=== PATIENT | female | born 1965 | race Caucasian/White ===

== ENCOUNTER → 2019-02-11 13:12 | Outpatient (CLI) | payer OTHER, SELFPAY ==
--- NOTE | 2019-02-11 | DI.RAD.S_ITS ---
PROCEDURE: XR CERVICAL SPINE 4V OR 5V INDICATIONS: NECK PAIN TECHNIQUE: 5 views of the cervical spine acquired. COMPARISON: None. FINDINGS: Bones: There is straightening and mild reversal of normal cervical lordosis centered at C4-5 level. No fractures or dislocations to the C7-T1 level. Mild degenerative endplate changes are noted at C4-5 through C6-7 levels. Oblique images demonstrate the right-sided neural foramina narrowing at C6-7 level. Soft tissues: No prevertebral soft tissue swelling. IMPRESSION: Degenerative disc disease at C4-5 through C6-7 levels with mild right-sided neuroforaminal narrowing at C6-7 level. No compression fracture. Dictated by: Tc Wallace M.D. on 02/11/2019 at 14:10 Approved by: Tc Wallace M.D. on 02/11/2019 at 14:23
== END ==
PROVIDERS: PCP Internal Medicine; Visit Provider Internal Medicine
DX: M50.321 Other cervical disc degeneration at C4-C5 level (principal); M48.02 Spinal stenosis, cervical region
CPT/HCPCS: 72050

== ENCOUNTER → 2023-07-15 17:07 | Outpatient (CLI) | payer OTHER, SELFPAY ==
--- NOTE | 2023-07-15 17:10 | DI.RAD.S_ITS ---
PROCEDURE: XR LUMBAR SPINE 2-3V INDICATIONS: LOW BACK PAIN TECHNIQUE: 3 views of the lumbar spine were acquired. COMPARISON: [facility], , L-SPINE 2-3 VIEWS, 02/12/2018, 13:12. FINDINGS: Bones: 5 jem-leg-cuoatcp vertebrae are present. 5 mm spondylolisthesis L4-L5. Mild multilevel disc height loss with endplate sclerosis and spurring, most notably at the L4-L5 level. Mild L4-L5 and L5-S1 facet joint arthropathy. No vertebral body compression fractures. No suspicious bony lesions. Soft tissues: Overlying bowel gas pattern is normal. No suspicious soft tissue calcifications. IMPRESSION: Mild multilevel lumbar spine spondylosis. Dictated by: Cedric Rowland [facility] Interpreted: Debbie Fleming MD on 07/15/2023 at 20:37 Approved by: Debbie Fleming M.D. on 07/16/2023 at 10:23
== END ==
PROVIDERS: PCP Internal Medicine; Referring Provider Internal Medicine; Visit Provider Internal Medicine
DX: M54.41 Lumbago with sciatica, right side (principal); M47.816 Spondylosis without myelopathy or radiculopathy, lumbar region; M47.817 Spondylosis without myelopathy or radiculopathy, lumbosacral region
CPT/HCPCS: 72100